=== PATIENT | female | born 1960 ===

== ENCOUNTER 2022-11-02 15:54 | Outpatient (RCR) | payer BC | END 2022-11-15 | LOC: PT 15:54 | PROVIDERS: ATTEND Orthopaedic Surgery | DX: M76.31 Iliotibial band syndrome, right leg (principal); M70.61 Trochanteric bursitis, right hip ==

== ENCOUNTER 2022-12-08 14:58 | Outpatient (RCR) | payer BC | END 2022-12-16 | LOC: PT 14:58 | PROVIDERS: ATTEND Orthopaedic Surgery | DX: M76.31 Iliotibial band syndrome, right leg (principal); M70.61 Trochanteric bursitis, right hip ==

== ENCOUNTER 2022-12-19 09:21 | Outpatient (RCR) | payer BC | END 2023-01-15 | LOC: PT 09:21 | PROVIDERS: ATTEND Orthopaedic Surgery | DX: M76.31 Iliotibial band syndrome, right leg (principal); M70.61 Trochanteric bursitis, right hip ==